=== PATIENT | female | born 1980 | race Two or more races ===

== ENCOUNTER → 2019-05-06 | Outpatient (CLI) | payer OTHER | END | disposition home or self-care (01) | LOC: PRENATAL 11:11 | DX: O99.89 Other specified diseases and conditions complicating pregnancy, childbirth and the puerperium (principal); O09.511 Supervision of elderly primigravida, first trimester; O10.011 Pre-existing essential hypertension complicating pregnancy, first trimester; O36.80X1 Pregnancy with inconclusive fetal viability, fetus 1 ==